=== PATIENT | male | born 1985 ===

== ENCOUNTER → 2020-09-13 | Emergency (ER) | payer SELFPAY ==
[~2020-09-13] VITALS: Ht 167.6 cm; Wt 77.3 kg
[2020-09-13 20:12] VITALS: BP 131/89
== END | disposition home or self-care (01) ==
LOC: EMS 20:13
DX: R10.32 Left lower quadrant pain (principal); Z53.21 Procedure and treatment not carried out due to patient leaving prior to being seen by health care provider